=== PATIENT | male | born 1945 | race Caucasian/White ===

== ENCOUNTER 2018-02-12 18:42 | Emergency (ER) | payer MEDICARE, BC ==
[2018-02-12] MEDS ORDERED: Ketorolac 10 MG Tab ONE ×2 (19:00)
[2018-02-12] MEDS ORDERED: Cyclobenzaprine 10 MG Tab ONE (19:00)
--- NOTE | 2018-02-12 19:38 | EDM.PDOC ---
ED HPI GENERAL MEDICAL PROBLEM - General Chief Complaint: General Stated Complaint: BACK PAIN Time Seen by Provider: 02/12/18 19:00 Source of Information: Reports: Patient History Limitations: Reports: No Limitations - History of Present Illness INITIAL COMMENTS - FREE TEXT/NARRATIVE: According to patient he has been having right sided lower back pain for about 5 days now. 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 He claims that pain is localized to one spot of the back. Hurts all the time, but bothers him more with sleep. Tylenol does help with the pain. Today he has been applying heat and did take one tablet of motrin and tylenol and the pain is still present and hence he is here. Onset: Gradual Onset Date: 02/07/18 Duration: Intermittent, Waxing/Waning Location: Reports: Back Quality: Reports: Ache Severity: Moderate Improves with: Reports: None Worsens with: Reports: None Associated Symptoms: Denies: Confusion, Chest Pain, Cough, Diaphoresis, Fever/ Chills, Headaches, Nausea/Vomiting, Rash, Seizure, Shortness of Breath, Syncope , Weakness ED ROS GENERAL - Review of Systems Review Of Systems: See Below Constitutional: Denies: Fever, Chills HEENT: Denies: Rhinitis, Sinus Problem, Throat Pain, Throat Swelling Respiratory: Denies: Cough, Sputum Cardiovascular: Denies: Chest Pain, Lightheadedness GI/Abdominal: Denies: Abdominal Pain, Nausea, Vomiting : Denies: Flank Pain, Frequency Musculoskeletal: Reports: Back Pain. Denies: Joint Pain, Joint Swelling Skin: Denies: Bruising, Pruritis, Rash ED EXAM, GENERAL - Physical Exam Exam: See Below Exam Limited By: No Limitations General Appearance: Alert, WD/WN, No Apparent Distress Eye Exam: Bilateral Eye: EOMI, PERRL Ears: Normal External Exam, Normal Canal, Hearing Grossly Normal, Normal TMs Ear Exam: Bilateral Ear: Auricle Normal, Canal Normal, TM normal Nose: Normal Inspection, Normal Mucosa, No Blood Throat/Mouth: Normal Inspection, Normal Lips, Normal Teeth, Normal Gums, Normal Oropharynx, Normal Voice, No Airway Compromise Head: Atraumatic, Normocephalic Back Exam: Normal Inspection, Full Range of Motion, Muscle Spasm, Paraspinal Tenderness (patient is tender over the right lumbar paraspinal tenderness.). No : Vertebral Tenderness Extremities: Normal Inspection, Normal Range of Motion, Non-Tender, Normal Capillary Refill, No Pedal Edema Course - Vital Signs Text/Narrative:: Pt reassured that he has right sided mechanical back pain. I have reassured that the pain will gradually improve. Started him on toradol 10mg 3 times daily with food. Flexeril 10mg TID and also advised intermittent heat 3-4 tiems daily for 15 minutes. avoid lifting heavy weight until pain resolves. Also caution with driving with him being on flexeril .Pt understands and agrees with the plan. Departure - Departure Time of Disposition: 19:15 Disposition: Home, Self-Care 01 Condition: Good Clinical Impression: Mechanical low back pain - Discharge Information Instructions: Back Pain, Adult, [id number], Heat Therapy, [id number] Forms: ED Department Discharge Additional Instructions: Take one tab Toradol and Flexeril at bedtime tonight. Use caution with Flexeril as it will make you drowsy. Take Toradol 3 times a day with food. If symptoms worsen or if you have any questions or concerns please call us at [phone]. - Problem List & Annotations (1) Mechanical low back pain SNOMED Code(s): 138971189 Code(s): M54.5 - LOW BACK PAIN Status: Acute - Problem List Review Problem List Initiated/Reviewed/Updated: Yes - Assessment/Plan Assessment:: Mechanical back pain Plan: Pt reassured that he has right sided mechanical back pain. I have reassured that the pain will gradually improve. Started him on toradol 10mg 3 times daily with food. Flexeril 10mg TID and also advised intermittent heat 3-4 tiems daily for 15 minutes. avoid lifting heavy weight until pain resolves. Also caution with driving with him being on flexeril .Pt understands and agrees with the plan.
== END 2018-02-12 19:25 | disposition home or self-care (01) ==
LOC: LB.ED 18:42
DX: M54.5 Low back pain (principal)
CPT/HCPCS: 99283; A9270

== ENCOUNTER 2020-04-09 21:17 | Emergency (ER) | payer MEDICARE | END 2020-04-09 21:20 | disposition home or self-care (01) | LOC: LB.ED 21:17 | DX: Z53.21 Procedure and treatment not carried out due to patient leaving prior to being seen by health care provider (principal) ==

== ENCOUNTER 2025-04-27 15:21 | Emergency (ER) | payer MEDICARE ==
[2025-04-27] MEDS: Ketorolac 30 MG/ML SDV IM ONE (16:30)
[2025-04-27 18:28] VITALS: BP 135/73; PULSE 58
== END 2025-04-27 17:25 | disposition home or self-care (01) ==
LOC: LB.ED 15:21
DX: S76.012A Strain of muscle, fascia and tendon of left hip, initial encounter (principal); Z79.899 Other long term (current) drug therapy; Z88.5 Allergy status to narcotic agent; X50.9XXA Other and unspecified overexertion or strenuous movements or postures, initial encounter
CPT/HCPCS: 96372; 99283; A9270-GY; J1885